=== PATIENT | female | born 2000 | race Caucasian/White ===

== ENCOUNTER 2023-01-28 01:57 | Emergency (ER) | payer OTHER ==
[~2023-01-28] VITALS: Ht 162.6 cm; Wt 51.9 kg
[2023-01-28 08:34] LABS: BLOOD UREA NITROGEN 11 MG/DL (9-23); CALCIUM LEVEL 9.4 MG/DL (8.5-10.1); CARBON DIOXIDE LEVEL 24 MMOL/L (20-31); CHLORIDE LEVEL 107 MMOL/L (98-107); CREATININE FOR GFR 0.71 MG/DL (0.55-1.30); GLOMERULAR FILTRATION RATE > 60.0 (>60); GLUCOSE, FASTING 109 MG/DL (60-100); MAGNESIUM LEVEL 2.1 MG/DL (1.8-2.4); POTASSIUM SERUM 4.4 MMOL/L (3.5-5.1); SODIUM LEVEL 141 MMOL/L (136-145)
[2023-01-28 08:41] LABS: HCG, SERUM QUALITATIVE NEGATIVE (NEGATIVE)
[2023-01-28 10:00] VITALS: BP 105/58; O2SAT 99
[2023-01-28 10:11] VITALS: TEMP 98.1
== END 2023-01-28 10:12 | disposition home or self-care (01) ==
LOC: M ED 01:57
DX: R20.2 Paresthesia of skin (principal); Z91.030 Bee allergy status